=== PATIENT | male | born 1950 | race Caucasian/White ===

== ENCOUNTER 2018-02-05 08:01 | Day surgery (SDC) | payer BC ==
[2018-02-05 08:26] VITALS: BMI 24.7
--- NOTE | 2018-02-05 10:04 | DS ---
Physical Examination Vital Signs: Vital Signs Temperature 97.5 F L 02/05/18 08:14 Pulse Rate 60 02/05/18 08:14 Respiratory Rate 16 02/05/18 08:14 Blood Pressure 143/95 02/05/18 08:14 O2 Sat by Pulse Oximetry (%) 98 02/05/18 08:14 Discharge Summary Reason For Visit: ARTHROFIBROSIS RIGHT KNEE Condition: Good - Instructions Diet, Activity, Other Instructions: Move the knee as much as tolerated Start PT soon Aspirin 81mg a day for blood clot prevention for one week. Pain meds as needed, but only for severe pain. use ice or heat for pain relief too. Schedule a follow up appointment for 4-6 weeks from today Disposition: HOME - Home Medications Comprehensive Discharge Medication List: Ambulatory Orders Sildenafil Citrate [Viagra] 100 mg PO DAILY PRN 02/05/18
--- NOTE | 2018-02-05 10:04 | OP ---
Operative Note - Note: Operative Date: 02/05/18 Pre-Operative Diagnosis: right knee arthrofibrosis Operation: TALIB right knee Post-Operative Diagnosis: Same as Pre-op Surgeon: Robert Monge Anesthesia: General
[2018-02-05 11:14] VITALS: PULSE 56; TEMP 98.1
[2018-02-05] MEDS ORDERED: ONDANSETRON 4 MG/2 ML VIAL IVPUSH PRN (11:15)
[2018-02-05] MEDS ORDERED: oxyCODONE HCL 5 MG TABLET PO PRN (11:15)
[2018-02-05] MEDS ORDERED: LACTATED RINGERS SOLUTION 1,000 ML IV SCH (11:15)
[2018-02-05 11:31] VITALS: BP 126/72
== END 2018-02-05 11:36 | disposition home or self-care (01) ==
LOC: FASU 08:01
PROVIDERS: ATTEND Orthopaedic Surgery
PROC: 9WB6XLZ Chiropractic Manipulation of Lower Extremities, Other Method (ICD-10-PCS; principal; 2018-02-05 09:55)
DX: M24.661 Ankylosis, right knee (principal)
CPT/HCPCS: 94760